=== PATIENT | male | born 1955 | race Caucasian/White ===

== ENCOUNTER 2018-04-15 15:26 | Inpatient (IN) | payer OTHER ==
[~2018-04-15] VITALS: Ht 160 cm; Wt 113.0 kg
[2018-04-15 15:50] VITALS: Ht 160 cm; Wt 113.0 kg
[2018-04-15 17:21] LABS: PLATELET COUNT 168 x10^3mcL (130-400); RED CELL DISTRIBUTION WIDTH 13.6 % (11.5-14.5)
[2018-04-15 17:39] LABS: BAND NEUTROPHIL 2 % (0-10); BASOPHIL 0 % (0-2); MONOCYTE 6 % (0-7); SEGMENTED NEUTROPHILS 85 % (37-75); rbc morphology (normal/abnorm) ABNORMAL (NORMAL)
[2018-04-15 18:06] LABS: CALCIUM 8.5 mg/dL (8.5-10.1); CARBON DIOXIDE 24.2 mmol/L (21-32); CREATININE SERUM 1.4 mg/dL (0.7-1.3); POTASSIUM SERUM 3.8 mmol/L (3.5-5.1)
[2018-04-15 18:10] LABS: TOTAL PROTEIN, SERUM 6.6 g/dL (6.4-8.2)
[2018-04-15 18:21] LABS: ALBUMIN 3.1 g/dL (3.4-5.0)
[2018-04-15 20:18] LABS: microscopic required? YES; urine erythrocyte TRACE (NEGATIVE)
[2018-04-15] MEDS ORDERED: ATENOLOL50 MG PO (20:30)
[2018-04-15] MEDS ORDERED: BYSTOLIC20 M1 PO (20:30)
[2018-04-15] MEDS ORDERED: NEU300 PO (20:30)
[2018-04-15] MEDS ORDERED: TRAMADOL HCL50 MG PO (20:31)
[2018-04-15] MEDS ORDERED: TOPAMAX50 M1 PO (20:31)
[2018-04-15] MEDS ORDERED: DESIPRAMINE HCL25 MG PO (20:32)
[2018-04-15 22:10] VITALS: BP 118/67
[2018-04-16 05:24] VITALS: BP 142/78
[2018-04-16 06:32] LABS: ALKALINE PHOSPHATASE 70 U/L (46-116); ALT/SGPT 36 U/L (16-63); AST/SGOT 38 U/L (15-37); BILIRUBIN TOTAL 0.8 mg/dL (0.20-1.00); CALCIUM 7.9 mg/dL (8.5-10.1); CARBON DIOXIDE 23.3 mmol/L (21-32); CHLORIDE SERUM 104 mmol/L (98-107); CREATININE SERUM 1.1 mg/dL (0.7-1.3); GFR1 > 60 mL/min; GLUCOSE SERUM 142 mg/dL (74-106); POTASSIUM SERUM 3.1 mmol/L (3.5-5.1); SODIUM SERUM 136 mmol/L (136-145); TOTAL PROTEIN, SERUM 6.2 g/dL (6.4-8.2)
[2018-04-16 06:33] LABS: ALBUMIN 2.8 g/dL (3.4-5.0)
[2018-04-16 06:37] LABS: BASOPHIL % 0 % (0-2); PLATELET COUNT 149 x10^3mcL (130-400); RED CELL DISTRIBUTION WIDTH 13.4 % (11.5-14.5)
[2018-04-16 08:23] VITALS: BP 112/72
[2018-04-16 16:21] VITALS: BP 117/71
[2018-04-16 19:59] VITALS: BP 106/63
[2018-04-17 05:09] VITALS: BP 116/72
[2018-04-17 06:39] LABS: BASOPHIL % 0.3 % (0-2); PLATELET COUNT 158 x10^3mcL (130-400); RED CELL DISTRIBUTION WIDTH 13.3 % (11.5-14.5)
[2018-04-17 06:40] LABS: CALCIUM 7.9 mg/dL (8.5-10.1); CHLORIDE SERUM 104 mmol/L (98-107); CREATININE SERUM 1.1 mg/dL (0.7-1.3); GFR1 > 60 mL/min; GLUCOSE SERUM 126 mg/dL (74-106); POTASSIUM SERUM 3.6 mmol/L (3.5-5.1); SODIUM SERUM 137 mmol/L (136-145)
[2018-04-17 09:09] VITALS: BP 118/65
[2018-04-17 17:18] VITALS: BP 110/67
[2018-04-17 20:00] VITALS: BP 148/76
[2018-04-18 05:32] LABS: PLATELET COUNT 177 x10^3mcL (130-400); RED CELL DISTRIBUTION WIDTH 13.7 % (11.5-14.5)
[2018-04-18 05:41] LABS: ALBUMIN 2.5 g/dL (3.4-5.0); ALKALINE PHOSPHATASE 74 U/L (46-116); ALT/SGPT 15 U/L (16-63); AST/SGOT 32 U/L (15-37); CALCIUM 8.2 mg/dL (8.5-10.1); CARBON DIOXIDE 23.5 mmol/L (21-32); CHLORIDE SERUM 105 mmol/L (98-107); GFR1 > 60 mL/min; GLUCOSE SERUM 119 mg/dL (74-106); POTASSIUM SERUM 3.5 mmol/L (3.5-5.1); SODIUM SERUM 139 mmol/L (136-145); TOTAL PROTEIN, SERUM 6.4 g/dL (6.4-8.2)
[2018-04-18 05:54] VITALS: BP 125/72
[2018-04-18 09:28] VITALS: BP 115/64
[2018-04-18 10:16] LABS: BAND NEUTROPHIL 30 % (0-10); MONOCYTE 9 % (0-7); SEGMENTED NEUTROPHILS 44 % (37-75)
[2018-04-18 10:17] LABS: PLATELET MORPHOLOGY PLATELETS NORMAL; rbc morphology (normal/abnorm) NORMAL (NORMAL)
[2018-04-18 16:47] VITALS: BP 130/71
[2018-04-18 20:15] VITALS: BP 127/63
[2018-04-18 21:30] VITALS: BP 124/61
[2018-04-19 05:23] VITALS: BP 130/73
[2018-04-19 07:03] LABS: PLATELET COUNT 208 x10^3mcL (130-400); RED CELL DISTRIBUTION WIDTH 12.7 % (11.5-14.5)
[2018-04-19 07:53] LABS: ATYPICAL LYMPH 1 %; BAND NEUTROPHIL 2 % (0-10); BASOPHIL 0 % (0-2); MONOCYTE 10 % (0-7); SEGMENTED NEUTROPHILS 79 % (37-75)
[2018-04-19 07:54] LABS: PLATELET MORPHOLOGY PLATELETS DECREASED; rbc morphology (normal/abnorm) ABNORMAL (NORMAL)
[2018-04-19 09:07] VITALS: BP 114/69
[2018-04-19 16:50] VITALS: BP 112/65
[2018-04-20 05:29] VITALS: BP 125/72
[2018-04-20 07:12] LABS: PLATELET COUNT 241 x10^3mcL (130-400); RED CELL DISTRIBUTION WIDTH 13.6 % (11.5-14.5)
[2018-04-20 08:33] VITALS: BP 127/71
[2018-04-20 10:37] LABS: BAND NEUTROPHIL 0 % (0-10); BASOPHIL 0 % (0-2); MONOCYTE 9 % (0-7); SEGMENTED NEUTROPHILS 75 % (37-75)
[2018-04-20 10:39] LABS: PLATELET MORPHOLOGY PLATELETS DECREASED; rbc morphology (normal/abnorm) ABNORMAL (NORMAL)
[2018-04-20 13:19] LABS: CALCITONIN < 2.0 pg/mL (0.0-8.4)
[2018-04-20 16:18] VITALS: BP 121/69
[2018-04-20 19:35] VITALS: BP 124/75
[2018-04-21 05:33] VITALS: BP 130/78
[2018-04-21 06:52] LABS: BASOPHIL % 0.4 % (0-2); PLATELET COUNT 282 x10^3mcL (130-400); RED CELL DISTRIBUTION WIDTH 13.8 % (11.5-14.5)
[2018-04-21 07:17] LABS: CALCIUM 8.6 mg/dL (8.5-10.1); CARBON DIOXIDE 27.3 mmol/L (21-32); CHLORIDE SERUM 104 mmol/L (98-107); CREATININE SERUM 0.9 mg/dL (0.7-1.3); GFR1 > 60 mL/min; GLUCOSE SERUM 127 mg/dL (74-106); POTASSIUM SERUM 4.2 mmol/L (3.5-5.1); SODIUM SERUM 135 mmol/L (136-145)
[2018-04-21 09:54] VITALS: BP 115/85
[2018-04-21 14:36] VITALS: BP 115/85
== END 2018-04-21 16:30 | disposition home or self-care (01) | DRG 872 ==
LOC: ED 15:26 → MU 21:22
PROVIDERS: Emergency Medicine; Internal Medicine Pulmonary Disease
DX: A41.9 Sepsis, unspecified organism (principal); L03.115 Cellulitis of right lower limb; I10 Essential (primary) hypertension; E86.0 Dehydration; G62.9 Polyneuropathy, unspecified; M19.071 Primary osteoarthritis, right ankle and foot
CPT/HCPCS: 82308; 83880; J0690; J1650; J2543; J3370; J3490; J7030; J7040; J7050; Q0092